=== PATIENT | male | born 1990 | race African-American/Black ===

== ENCOUNTER 2018-08-26 08:23 | Emergency (ER) | payer SELFPAY ==
[2018-08-26 09:01] LABS: Absolute Lymphocytes (CBC) 1.9 K/uL (0.7-4.9); Absolute Monocytes 0.2 K/uL (0.1-1.3); Absolute Neutrophil 1.6 K/uL (1.8-8.0); Basophils % 1.2 % (0-1.3); Eosinophils % 4.8 % (0-4.4); Hematocrit 45.3 % (39.6-49.0); Lymphocytes % 47.8 % (15.3-44.8); MCH 29.4 pg (27.0-35.0); MCV 90.1 fL (80-100); MPV 10.6 fL (7.6-11.3); Monocytes % 5.5 % (3.3-12.3); RBC Red Blood Cell Count 5.03 M/uL (4.33-5.43)
[2018-08-26 09:19] LABS: BUN Blood Urea Nitrogen 11 mg/dL (7-18); Bicarbonate 30 mmol/L (21-32); Glucose Level 94 mg/dL (74-106); Magnesium 1.9 mg/dL (1.8-2.4); NT PRO-BNP 50 pg/mL (<125); Potassium 4.2 mmol/L (3.5-5.1); Sodium Level 142 mmol/L (136-145); Troponin (Emerg Dept Use Only) < 0.02 ng/mL (0.0-0.045)
--- NOTE | 2018-08-26 09:33 | RAD REPORT ---
EXAM DESCRIPTION: RAD - Chest Pa And Lat (2 Views) - 08/26/2018 9:28 am CLINICAL HISTORY: CHEST PAIN Chest pain. COMPARISON: CHEST SINGLE VIEW dated 01/09/2013; CHEST PA AND LAT 2 VIEW dated 07/02/2011 FINDINGS: The lungs are clear. The heart is normal in size. No displaced fractures. IMPRESSION: No acute or concerning finding suspected.
--- NOTE | 2018-08-26 09:45 | ER ---
Nurse's Notes [facility] Name: Marcos Gonzalez Age: 28 yrs Sex: Male : 1990 Arrival Date: 08/26/2018 Time: 08:24 Bed 17 Private MD: None, None Diagnosis: Chest pain, unspecified Presentation: 08/26 08:37 Presenting complaint: Patient states: i have this squeezing feeling on my chest for the hj past 3 days; reports cough; the pain moves from my back to the center of my chest; reports SOB; reports nausea; denies vomiting; pain is 10/10;. Transition of care: patient was not received from another setting of care. Onset of symptoms was August 26, 2018. Risk Assessment: Do you want to hurt yourself or someone else? Patient reports no desire to harm self or others. Initial Sepsis Screen: Does the patient meet any 2 criteria? No. Patient's initial sepsis screen is negative. Does the patient have a suspected source of infection? No. Patient's initial sepsis screen is negative. Care prior to arrival: None. 08:37 Method Of Arrival: Ambulatory 08:37 Acuity: WALTER 3 hj Triage Assessment: 08:40 General: Appears in no apparent distress. uncomfortable, Behavior is calm, cooperative, hj appropriate for age. Pain: Complains of pain in chest Pain radiates to back Pain currently is 10 out of 10 on a pain scale. Quality of pain is described as squeezing. EENT: No signs and/or symptoms were reported regarding the EENT system. Neuro: Level of Consciousness is awake, alert, obeys commands, Oriented to person, place, time, situation, Appropriate for age. Cardiovascular: Capillary refill < 3 seconds Patient's skin is warm and dry. Respiratory: Airway is patent Respiratory effort is even, unlabored, Respiratory pattern is regular, symmetrical. GI: No signs and/or symptoms were reported involving the gastrointestinal system. : No signs and/or symptoms were reported regarding the genitourinary system. Derm: No signs and/or symptoms reported regarding the dermatologic system. Musculoskeletal: Circulation, motion, and sensation intact. Capillary refill Range of motion: intact in all extremities. Historical: - Allergies: 08:39 No Known Allergies; hj - Home Meds: 08:39 None [Active]; hj - PMHx: 08:39 None; hj - PSHx: 08:39 None; hj - Immunization history:: Adult Immunizations up to date. - Social history:: Smoking status: Patient uses tobacco products, smokes one-half pack cigarettes per day, Patient uses alcohol, occasionally. - Ebola Screening: : Patient negative for fever greater than or equal to 101.5 degrees Fahrenheit, and additional compatible Ebola Virus Disease symptoms Patient denies exposure to infectious person Patient denies travel to an Ebola-affected area in the 21 days before illness onset. Screenin:40 Abuse screen: Denies threats or abuse. Denies injuries from another. Nutritional hj screening: No deficits noted. Tuberculosis screening: No symptoms or risk factors identified. Fall Risk None identified. Assessment: 08:30 General: Appears in no apparent distress. uncomfortable, Behavior is calm, cooperative, hj appropriate for age. Pain: Complains of pain in back and chest. Neuro: Level of Consciousness is awake, alert, obeys commands, Oriented to person, place, time, situation, Appropriate for age. Cardiovascular: Capillary refill < 3 seconds Patient's skin is warm and dry. Respiratory: Airway is patent Respiratory effort is even, unlabored, Respiratory pattern is regular, symmetrical. GI: No signs and/or symptoms were reported involving the gastrointestinal system. : No signs and/or symptoms were reported regarding the genitourinary system. EENT: No signs and/or symptoms were reported regarding the EENT system. Derm: No signs and/or symptoms reported regarding the dermatologic system. Musculoskeletal: No signs and/or symptoms reported regarding the musculoskeletal system. 09:30 Reassessment: Patient and/or family updated on plan of care and expected duration. Pain hj level reassessed. Patient is alert, oriented x 3, equal unlabored respirations, skin warm/dry/pink. wheeled from CT;. Vital Signs: 08:41 BP 118 / 74; Pulse 69; Resp 18; Temp 98.1(O); Pulse Ox 100% on R/A; Weight 85.73 kg; hj Height 6 ft. 2 in. (187.96 cm); Pain 10/10; 09:13 BP 106 / 73 RA Sitting; Pulse 53; Resp 18; Pulse Ox 100% on R/A; hj 09:13 BP 119 / 75 LA Sitting; Pulse 65; Resp 18; Pulse Ox 100% on R/A; hj 09:53 BP 116 / 74; Pulse 60; Resp 18; Pulse Ox 100% on R/A; hj 08:41 Body Mass Index 24.27 (85.73 kg, 187.96 cm) hj ED Course: 08:24 Patient arrived in ED. mr 08:24 None, None is Private Physician. mr 08:31 Anette Burger FNP-C is [facility]. kb 08:31 Bradford Adler MD is Attending Physician. kb 08:31 EKG done, by field technical support consultant. reviewed by Bradford Adler MD. at1 08:31 No provider procedures requiring assistance completed. Initial lab(s) drawn, by me, hj sent to lab. Inserted saline lock: 22 gauge in right antecubital area, using aseptic technique. Blood collected. 08:37 Eusebio Bajwa, RN is Primary Nurse. hj 08:39 Triage completed. hj 08:41 Arm band placed on right wrist. hj 08:41 Patient has correct armband on for positive identification. Placed in gown. Bed in low hj position. Call light in reach. Side rails up X 1. Adult w/ patient. 09:21 X-ray completed. Patient tolerated procedure well. Patient moved back from radiology. jb2 09:23 Chest Pa And Lat (2 Views) XRAY In Process Unspecified. EDMS 10:04 IV discontinued, intact, bleeding controlled, No redness/swelling at site. Pressure hj dressing applied. Administered Medications: 09:38 Drug: TORadol 30 mg Route: IVP; Site: right antecubital; hj 09:53 Follow up: Response: No adverse reaction; Pain is decreased hj Outcome: 09:44 Discharge ordered by . kb 10:03 Discharged to home ambulatory, with family. hj 10:03 Condition: stable 10:03 Discharge instructions given to patient, family, Instructed on discharge instructions, follow up and referral plans. Demonstrated understanding of instructions, follow-up care. 10:03 Patient left the ED. Signatures: Dispatcher [employer] EDMS Anette Burger FNP-C FNP-Patricia Alis Solis Jesse jb2 Malena Hendrix, slitter cut off operator EKG Tat1 Eusebio Bajwa, RN RN Corrections: (The following items were deleted from the chart) 10:04 10:03 Discharge instructions given to patient, family, Instructed on discharge instructions, follow up and referral plans. Demonstrated understanding of instructions, follow-up care,
--- NOTE | 2018-08-26 09:45 | EDPHYS ---
Physician Documentation [facility] Name: Marcos Gonzalez Age: 28 yrs Sex: Male : 1990 Arrival Date: 08/26/2018 Time: 08:24 Bed 17 Private MD: None, None ED Physician Bradford Adler HPI: 08/26 09:41 This 28 yrs old Black Male presents to ER via Ambulatory with complaints of Back Pain, kb Chest Pain. 09:41 The patient or guardian reports chest pain that is located primarily in the anterior kb chest wall, bilaterally. The pain radiates to back. Associated signs and symptoms: Pertinent positives: shortness of breath. The chest pain is described as sharp. Duration: The patient or guardian reports multiple episodes. Modifying factors: The symptoms are alleviated by remaining still, the symptoms are aggravated by movement. Severity of pain: At its worst the pain was mild in the emergency department the pain is unchanged. The patient has not experienced similar symptoms in the past. The patient has not recently seen a physician. Pt reports chest and back pain that is worse with movement. States "I know it's there when I'm being still but it's not really painful until I move." Reports he is not sure if the pain starts in the back or chest. Onset 2-3 days ago. Historical: - Allergies: 08:39 No Known Allergies; hj - Home Meds: 08:39 None [Active]; hj - PMHx: 08:39 None; hj - PSHx: 08:39 None; hj - Immunization history:: Adult Immunizations up to date. - Social history:: Smoking status: Patient uses tobacco products, smokes one-half pack cigarettes per day, Patient uses alcohol, occasionally. - Ebola Screening: : Patient negative for fever greater than or equal to 101.5 degrees Fahrenheit, and additional compatible Ebola Virus Disease symptoms Patient denies exposure to infectious person Patient denies travel to an Ebola-affected area in the 21 days before illness onset. ROS: 09:40 Constitutional: Negative for fever, chills, and weight loss, Respiratory: Negative for kb shortness of breath, cough, wheezing, and pleuritic chest pain, Abdomen/GI: Negative for abdominal pain, nausea, vomiting, diarrhea, and constipation, : Negative for injury, bleeding, discharge, and swelling, MS/Extremity: Negative for injury and deformity, Skin: Negative for injury, rash, and discoloration, Neuro: Negative for headache, weakness, numbness, tingling, and seizure. 09:40 Cardiovascular: Positive for chest pain. 09:40 Back: Positive for pain with movement. Exam: 09:40 Constitutional: This is a well developed, well nourished patient who is awake, alert, kb and in no acute distress. Head/Face: Normocephalic, atraumatic. Chest/axilla: Normal chest wall appearance and motion. Nontender with no deformity. No lesions are appreciated. Cardiovascular: Regular rate and rhythm with a normal S1 and S2. No gallops, murmurs, or rubs. Normal PMI, no JVD. No pulse deficits. Respiratory: Lungs have equal breath sounds bilaterally, clear to auscultation and percussion. No rales, rhonchi or wheezes noted. No increased work of breathing, no retractions or nasal flaring. Abdomen/GI: Soft, non-tender, with normal bowel sounds. No distension or tympany. No guarding or rebound. No evidence of tenderness throughout. Back: No spinal tenderness. No costovertebral tenderness. Full range of motion. Skin: Warm, dry with normal turgor. Normal color with no rashes, no lesions, and no evidence of cellulitis. MS/ Extremity: Pulses equal, no cyanosis. Neurovascular intact. Full, normal range of motion. Neuro: Awake and alert, GCS 15, oriented to person, place, time, and situation. Cranial nerves II-XII grossly intact. Motor strength 5/5 in all extremities. Sensory grossly intact. Cerebellar exam normal. Normal gait. Vital Signs: 08:41 BP 118 / 74; Pulse 69; Resp 18; Temp 98.1(O); Pulse Ox 100% on R/A; Weight 85.73 kg; hj Height 6 ft. 2 in. (187.96 cm); Pain 10/10; 09:13 BP 106 / 73 RA Sitting; Pulse 53; Resp 18; Pulse Ox 100% on R/A; hj 09:13 BP 119 / 75 LA Sitting; Pulse 65; Resp 18; Pulse Ox 100% on R/A; hj 09:53 BP 116 / 74; Pulse 60; Resp 18; Pulse Ox 100% on R/A; hj 08:41 Body Mass Index 24.27 (85.73 kg, 187.96 cm) hj MDM: 08:36 Patient medically screened. kb 09:41 Data reviewed: vital signs, nurses notes. Data interpreted: Pulse oximetry: on room air kb is 100 %. Interpretation: normal. Counseling: I had a detailed discussion with the patient and/or guardian regarding: the historical points, exam findings, and any diagnostic results supporting the discharge/admit diagnosis, lab results, radiology results, the need for outpatient follow up, a family practitioner, to return to the emergency department if symptoms worsen or persist or if there are any questions or concerns that arise at home. 08/26 08:44 Order name: Basic Metabolic Panel; Complete Time: 09:20 kb 08/26 08:44 Order name: CBC with Diff; Complete Time: 09:08 kb 08/26 08:44 Order name: Magnesium; Complete Time: 09:20 kb 08/26 08:44 Order name: NT PRO-BNP; Complete Time: 09:20 kb 08/26 08:44 Order name: Troponin (emerg Dept Use Only); Complete Time: 09:20 kb 08/26 08:45 Order name: D-Dimer; Complete Time: 09:12 kb 08/26 08:36 Order name: EKG; Complete Time: 08:36 kb 08/26 08:36 Order name: EKG - Nurse/Tech; Complete Time: 08:37 kb 08/26 08:44 Order name: Cardiac monitoring; Complete Time: 09:08 kb 08/26 08:44 Order name: IV Saline Lock; Complete Time: 09:08 kb 08/26 08:44 Order name: Labs collected and sent; Complete Time: 09:08 kb 08/26 08:44 Order name: O2 Per Protocol; Complete Time: 08:46 kb 08/26 08:44 Order name: Chest Pa And Lat (2 Views) XRAY; Complete Time: 09:34 kb 08/26 08:44 Order name: O2 Sat Monitoring; Complete Time: 08:46 kb 08/26 08:44 Order name: Bilateral blood pressure; Complete Time: 09:14 kb Administered Medications: 09:38 Drug: TORadol 30 mg Route: IVP; Site: right antecubital; hj 09:53 Follow up: Response: No adverse reaction; Pain is decreased hj Disposition: 14:34 Co-signature as Attending Physician, Bradford Adler MD. rn Disposition: 08/26/18 09:44 Discharged to Home. Impression: Chest pain, unspecified. - Condition is Stable. - Discharge Instructions: Nonspecific Chest Pain, [id number]. - Medication Reconciliation Form, Thank You Letter, Antibiotic Education, Prescription Opioid Use, Work release form, Family Work Release form. - Follow up: Emergency Department; When: As needed; Reason: Worsening of condition. Follow up: Private Physician; When: 2 - 3 days; Reason: Recheck today's complaints, Continuance of care, Re-evaluation by your physician. Signatures: Dispatcher [employer] EDMS Anette Burger, TARGET NETWORK ANALYST-C TARGET NETWORK ANALYST-Ckb Bradford Adler MD MD rn Joaquin, Henry, RN RN hj Corrections: (The following items were deleted from the chart) 09:44 09:41 Pt reports chest and back pain that is worse with movement. States "I know it's kb there when I'm being still but it's not really painful until I move." Reports he is not sure if the pain starts in the back or chest.. kb 10:03 09:44 08/26/2018 09:44 Discharged to Home. Impression: Chest pain, unspecified. hj Condition is Stable. Forms are Medication Reconciliation Form, Thank You Letter, Antibiotic Education, Prescription Opioid Use. Follow up: Emergency Department; When: As needed; Reason: Worsening of condition. Follow up: Private Physician; When: 2 - 3 days; Reason: Recheck today's complaints, Continuance of care, Re-evaluation by your physician. kb
[2018-08-26] MEDS ORDERED: KETOROLAC 30 MG/ML INJ ONE (09:58)
[2018-08-26 10:23] VITALS: TEMP 98.1; O2SAT 100
[2018-08-26 10:25] VITALS: BP 116/74
--- NOTE | 2018-08-26 10:33 | EKG ---
Test Date: 2018-08-26 Test Time: 08:27:41 Correctional Lieutenant: MADELAINE MEASUREMENT RESULTS: Intervals: Rate: 64 TX: 148 QRSD: 88 QT: 378 QTc: 389 [place]: P: 77 TX: 148 QRS: 14 T: 62 INTERPRETIVE STATEMENTS: Normal sinus rhythm Normal ECG Compared to ECG 03/23/2007 08:06:03 Sinus bradycardia no longer present Electronically Signed On 08-26-18 10:32:27 CDT by Oscar Olea
== END 2018-08-26 10:03 | disposition home or self-care (01) ==
LOC: ER 08:23
DX: R07.9 Chest pain, unspecified (principal); F17.210 Nicotine dependence, cigarettes, uncomplicated
CPT/HCPCS: 36415; 71046; 80048; 83735; 83880; 84484; 85025; 85379; 93005; 96374; 99284

== ENCOUNTER 2019-07-28 06:33 | Emergency (ER) | payer SELFPAY ==
--- NOTE | 2019-07-28 07:34 | ER ---
Nurse's Notes [facility] Name: Marcos Gonzalez Age: 29 yrs Sex: Male : 1990 Arrival Date: 07/28/2019 Time: 06:34 Bed 18 [facility] MD: Diagnosis: Urethritis Presentation: 07/28 06:49 Presenting complaint: Patient states: "I have been having a lot of itching down there. jd3 I don't think it is an STD, but I am no gaining weight and eating badly. It is itching and kind of like a burning feeling and really dry looking. I have only been with my girl so I don't know how I would have gotten anything.". Transition of care: patient was not received from another setting of care. Onset of symptoms was July 28, 2019. Risk Assessment: Do you want to hurt yourself or someone else? Patient reports no desire to harm self or others. Initial Sepsis Screen: Does the patient meet any 2 criteria? No. Patient's initial sepsis screen is negative. Does the patient have a suspected source of infection? No. Patient's initial sepsis screen is negative. Care prior to arrival: None. 06:49 Method Of Arrival: Ambulatory jd3 06:49 Acuity: WALTER 4 jd3 Historical: - Allergies: 06:52 No Known Allergies; jd3 - Home Meds: 06:52 None [Active]; jd3 - PMHx: 06:52 None; jd3 - PSHx: 06:52 None; jd3 - Immunization history:: Adult Immunizations up to date. - Social history:: Smoking status: Patient uses tobacco products, denies chronic smoking, but will smoke occasionally. - Ebola Screening: : Patient negative for fever greater than or equal to 101.5 degrees Fahrenheit, and additional compatible Ebola Virus Disease symptoms. Screenin:55 Abuse screen: Denies threats or abuse. Nutritional screening: No deficits noted. jd3 Tuberculosis screening: No symptoms or risk factors identified. Fall Risk Ambulatory Aid- None/Bed Rest/Nurse Assist (0 pts). Gait- Normal/Bed Rest/Wheelchair (0 pts) Mental Status- Oriented to own ability (0 pts). Total Casanova Fall Scale indicates No Risk (0-24 pts). Assessment: 06:53 General: Appears in no apparent distress. uncomfortable, Behavior is calm, cooperative, jd3 appropriate for age. Pain: Complains of pain in groin Quality of pain is described as burning. Neuro: Level of Consciousness is awake, alert, obeys commands, Oriented to person, place, time, situation. Cardiovascular: Capillary refill < 3 seconds Patient's skin is warm and dry. Respiratory: Airway is patent Respiratory effort is even, unlabored, Respiratory pattern is regular, symmetrical. GI: No signs and/or symptoms were reported involving the gastrointestinal system. : Reports burning, itching, and dry-look to groin and penis Denies burning with urination, inability to void. EENT: No signs and/or symptoms were reported regarding the EENT system. Derm: Skin is intact, Skin is dry, Skin is normal, Skin temperature is warm. Musculoskeletal: Circulation, motion, and sensation intact. Range of motion: intact in all extremities. 07:30 Reassessment: Patient appears in no apparent distress at this time. No changes from hb previously documented assessment. Patient and/or family updated on plan of care and expected duration. Pain level reassessed. Patient is alert, oriented x 3, equal unlabored respirations, skin warm/dry/pink. Vital Signs: 06:52 BP 121 / 70; Pulse 77; Resp 16 S; Temp 98.0(O); Pulse Ox 97% on R/A; Weight 92.53 kg jd3 (R); Height 6 ft. 2 in. (187.96 cm) (R); Pain 5/10; 07:45 BP 120 / 72; Pulse 71; Resp 16; Pulse Ox 99% on R/A; hb 06:52 Body Mass Index 26.19 (92.53 kg, 187.96 cm) j ED Course: 06:34 Patient arrived in ED. ds1 06:51 Triage completed. jd3 06:53 Benson Iqbal NP is PHCP. pm1 06:53 Will Will MD is Attending Physician. pm1 06:53 Arm band placed on. jd3 06:55 Patient has correct armband on for positive identification. Bed in low position. Call [facility] light in reach. Side rails up X 1. 07:38 Daina Akers, WILY is Primary Nurse. hb 07:49 Urine Microscopic Only Sent. hb 07:55 Urine collected: clean catch specimen, clear. [facility] 08:04 No provider procedures requiring assistance completed. Patient did not have IV access hb during this emergency room visit. Administered Medications: 07:41 Drug: Rocephin (cefTRIAXone) 250 mg Route: IM; Site: right deltoid; hb 08:01 Follow up: Response: No adverse reaction hb 07:41 Drug: AZITHromycin 1 grams Route: PO; hb 08:02 Follow up: Response: Medication administered at discharge. Outcome: 07:33 Discharge ordered by MD. pm1 08:04 Discharged to home ambulatory. hb 08:04 Condition: stable 08:04 Discharge instructions given to patient, Instructed on discharge instructions, follow up and referral plans. medication usage, Demonstrated understanding of instructions, follow-up care, medications. 08:06 Patient left the ED. Signatures: Jenifer Lynn ds1 Benson Iqbal, MOLLY POWER TECHNICIAN pm1 Daina Akers RN RN Aide [place] 5 Humberto Domínguez RN RN jd3
--- NOTE | 2019-07-28 07:35 | EDPHYS ---
Physician Documentation [facility] Name: Marcos Gonzalez Age: 29 yrs Sex: Male : 1990 Arrival Date: 07/28/2019 Time: 06:34 Bed 18 Private MD: ED Physician Will Will HPI: 07/28 07:30 This 29 yrs old Black Male presents to ER via Ambulatory with complaints of Penile pm1 Problem - Itching/Burning. 07:30 The patient presents with urinary symptoms, dysuria, whitish skin on shaft of penis. pm1 Onset: The symptoms/episode began/occurred many months on and off. Patient had STD test with girlfriend 2 years ago after they had sex. he was negative and she was positive for a STD. Patent reports symptoms are present when he does not wash his genitals after intercourse. Modifying factors: The symptoms are alleviated by nothing, the symptoms are aggravated by poor hygiene after sex. Associated signs and symptoms: Pertinent negatives: abdominal pain, fever, testicular pain or swelling. Severity of symptoms: in the emergency department the symptoms are unchanged. The patient has not recently seen a physician. Historical: - Allergies: 06:52 No Known Allergies; jd3 - Home Meds: 06:52 None [Active]; jd3 - PMHx: 06:52 None; jd3 - PSHx: 06:52 None; jd3 - Immunization history:: Adult Immunizations up to date. - Social history:: Smoking status: Patient uses tobacco products, denies chronic smoking, but will smoke occasionally. - Ebola Screening: : Patient negative for fever greater than or equal to 101.5 degrees Fahrenheit, and additional compatible Ebola Virus Disease symptoms. ROS: 07:30 Constitutional: Negative for fever, chills, and weight loss, Eyes: Negative for injury, pm1 pain, redness, and discharge, ENT: Negative for injury, pain, and discharge, Neck: Negative for injury, pain, and swelling, Cardiovascular: Negative for chest pain, palpitations, and edema, Respiratory: Negative for shortness of breath, cough, wheezing, and pleuritic chest pain, Abdomen/GI: Negative for abdominal pain, nausea, vomiting, diarrhea, and constipation, Back: Negative for injury and pain. 07:30 MS/Extremity: Negative for injury and deformity, Skin: Negative for injury, rash, and discoloration, Neuro: Negative for headache, weakness, numbness, tingling, and seizure. 07:30 : Positive for burning with urination, Negative for penile discharge, penile pain, testicular pain Exam: 07:30 Constitutional: This is a well developed, well nourished patient who is awake, alert, pm1 and in no acute distress. Head/Face: Normocephalic, atraumatic. Eyes: Pupils equal round and reactive to light, extra-ocular motions intact. Lids and lashes normal. Conjunctiva and sclera are non-icteric and not injected. Cornea within normal limits. Periorbital areas with no swelling, redness, or edema. ENT: Nares patent. No nasal discharge, no septal abnormalities noted. Tympanic membranes are normal and external auditory canals are clear. Oropharynx with no redness, swelling, or masses, exudates, or evidence of obstruction, uvula midline. Mucous membranes moist. Neck: Trachea midline, no thyromegaly or masses palpated, and no cervical lymphadenopathy. Supple, full range of motion without nuchal rigidity, or vertebral point tenderness. No Meningismus. Chest/axilla: Normal chest wall appearance and motion. Nontender with no deformity. No lesions are appreciated. Cardiovascular: Regular rate and rhythm with a normal S1 and S2. No gallops, murmurs, or rubs. Normal PMI, no JVD. No pulse deficits. Respiratory: Lungs have equal breath sounds bilaterally, clear to auscultation and percussion. No rales, rhonchi or wheezes noted. No increased work of breathing, no retractions or nasal flaring. Abdomen/GI: Soft, non-tender, with normal bowel sounds. No distension or tympany. No guarding or rebound. No evidence of tenderness throughout. Back: No spinal tenderness. No costovertebral tenderness. Full range of motion. Male : Normal genitalia with no discharge or lesions. Skin: Warm, dry with normal turgor. Normal color with no rashes, no lesions, and no evidence of cellulitis. MS/ Extremity: Pulses equal, no cyanosis. Neurovascular intact. Full, normal range of motion. 07:30 Neuro: Orientation: is normal, Motor: is normal, moves all fours. Vital Signs: 06:52 BP 121 / 70; Pulse 77; Resp 16 S; Temp 98.0(O); Pulse Ox 97% on R/A; Weight 92.53 kg jd3 (R); Height 6 ft. 2 in. (187.96 cm) (R); Pain 5/10; 07:45 BP 120 / 72; Pulse 71; Resp 16; Pulse Ox 99% on R/A; hb 06:52 Body Mass Index 26.19 (92.53 kg, 187.96 cm) jd3 MDM: 07:12 Patient medically screened. pm1 07:30 Data reviewed: vital signs. Data interpreted: Pulse oximetry: on room air is 97 %. pm1 Interpretation: normal. Counseling: I had a detailed discussion with the patient and/or guardian regarding: the historical points, exam findings, and any diagnostic results supporting the discharge/admit diagnosis, the need for outpatient follow up, to return to the emergency department if symptoms worsen or persist or if there are any questions or concerns that arise at home. 07/28 07:30 Order name: Urine Microscopic Only; Complete Time: 08:31 pm1 07/28 07:55 Order name: Urine Dipstick--Ancillary (enter results) bd 07/28 07:29 Order name: Urine Dipstick-Ancillary (obtain specimen); Complete Time: 07:49 pm1 Administered Medications: 07:41 Drug: Rocephin (cefTRIAXone) 250 mg Route: IM; Site: right deltoid; hb 08:01 Follow up: Response: No adverse reaction hb 07:41 Drug: AZITHromycin 1 grams Route: PO; hb 08:02 Follow up: Response: Medication administered at discharge. hb Disposition: 20:18 Co-signature as Attending Physician, Will Will MD. Disposition: 07/28/19 07:33 Discharged to Home. Impression: Urethritis. - Condition is Stable. - Discharge Instructions: Urethritis, Adult. - Work release form, Medication Reconciliation Form, Thank You Letter, Antibiotic Education, Prescription Opioid Use form. - Follow up: Emergency Department; When: As needed; Reason: Worsening of condition. Follow up: Private Physician; When: 2 - 3 days; Reason: Recheck today's complaints, Continuance of care, Re-evaluation by your physician. - Problem is new. - Symptoms have improved. Signatures: Dispatcher [employer] EDAL Benson Iqbal, ELECTRICAL INSTALLATION SUPERVISOR ELECTRICAL INSTALLATION SUPERVISOR pm1 Daina Akers RN RN Will Will MD MD gs Davies, Jonathon RN RN jd3 Corrections: (The following items were deleted from the chart) 08:06 07:33 07/28/2019 07:33 Discharged to Home. Impression: Urethritis. Condition is Stable. hb Forms are Medication Reconciliation Form, Thank You Letter, Antibiotic Education, Prescription Opioid Use. Follow up: Emergency Department; When: As needed; Reason: Worsening of condition. Follow up: Private Physician; When: 2 - 3 days; Reason: Recheck today's complaints, Continuance of care, Re-evaluation by your physician. Problem is new. Symptoms have improved. pm1
[2019-07-28] MEDS ORDERED: CEFTRIAXONE 250 MG/VIAL ONE (07:41)
[2019-07-28] MEDS ORDERED: AZITHROMYCIN 250 MG TAB ONE (07:41)
[2019-07-28] MEDS ORDERED: LIDOCAINE 1% MPF 2 ML AMPULE ONE (07:42)
[2019-07-28 08:13] VITALS: TEMP 98
[2019-07-28 08:14] VITALS: BP 120/72; O2SAT 99
[2019-07-28 08:18] LABS: Urine Bacteria NONE SEEN /HPF (NONE SEEN); Urine Culture Reflex Order NOT NEEDED; Urine RBC <5 /HPF (NONE SEEN)
[2019-07-28 14:51] LABS: Urine Blood NEGATIVE (NEG); Urine Glucose NEGATIVE (NEG); Urine Protein NEGATIVE (NEG)
== END 2019-07-28 08:06 | disposition home or self-care (01) ==
LOC: ER 06:33
DX: N34.2 Other urethritis (principal); Z72.0 Tobacco use
CPT/HCPCS: 81003; 81015; 96372; 99283; J0696; J2001

== ENCOUNTER 2025-08-30 00:18 | Emergency (ER) | payer OTHER, SELFPAY ==
--- OUTSIDE RECORDS SUMMARY | 2025-08-30 00:20 | XMS REPORT | Continuity of Care Document ---
Author Name Unknown Address [address] [place] [address] [facility] Address [address] [place] [address] Care Team Providers Care Underliner Name Role Phone [place], [place] [facility] Primary [facility] Physician Md Robert Roque Attending Clinician [phone] Scott Espinosa DO Attending Clinician [phone] Gastroenterology, [facility] Attending Clinician Benson Caal Attending Clinician [phone] Scott Espinosa DO Admitting Clinician [phone] Payers Payer Name Policy Type Policy Number Effective Date Expirati on Date Source Social History Social Habit Start Date Stop Date Quantity Comments Source History of tobacco use Cigarette Smoker [facility] Cigarettes smoked current (pack per day) - Reported 2024-05-28 00:00:00 2024-05-28 00:00:00 [facility] Cigarette pack-years 2024-05-28 00:00:00 2024-05-28 00:00:00 [facility] Tobacco use and exposure 2024-05-28 00:00:00 2024-05-28 00:00:00 Smokeless tobacco non-user [facility] History of Social function 2024-05-28 00:00:00 2024-05-28 00:00:00 [facility] Sex assigned at 1990 00:00:00 1990 00:00:00 [facility] Smoking Status Start Date Stop Date Source Tobacco smoking consumption unknown [facility] Ex-smoker 2024-05-28 00:00:00 2024-05-28 00:00:00 [facility] Medications Ordered Medication Name Filled Medication Name Start Date Stop Date Current Medication? Ordering Clinician Indication Dosage Frequency Signature (SIG) Comments Components Source amoxicillin (TRIMOX) 500 mg capsule 07-24 00:00: 00 05-08 00:00 :00 No [id number] 500mg Take 1 Cap by mouth 3 (three) times daily. [facility] ibuprofen (MOTRIN) 600 mg tablet 07-24 00:00: 00 05-08 00:00 :00 No [id number] 600mg Take 1 Tab by mouth every 6 (six) hours as needed for Pain. [facility] hydrocodone -acetaminop hen (NORCO) 5-325 mg tablet 07-24 00:00: 00 05-08 00:00 :00 No [id number] 1{tbl} Take 1-2 Tabs by mouth every 6 (six) hours as needed for Pain. [facility] chlorhexidi ne (PERIDEX) 0.12 % Liqd 07-24 00:00: 00 05-08 00:00 :00 No [id number] 15mL Swish and spit out 15 mL 2 (two) times daily. [facility] Vital Signs Vital Name Observation Time Observation Value Comments S refugio Systolic blood pressure 2024-05-28 15:33:00 146 mm[Hg] [facility] Diastolic blood pressure 2024-05-28 15:33:00 79 mm[Hg] [facility] Heart rate 2024-05-28 15:33:00 50 /min [facility] Respiratory rate 2024-05-28 15:33:00 18 /min [facility] Body height 2024-05-28 15:33:00 188 cm [facility] Body weight 2024-05-28 15:33:00 106.595 kg [facility] BMI 2024-05-28 15:33:00 30.17 kg/m2 [facility] Oxygen saturation in Arterial blood by Pulse oximetry 2024-05-28 15:33:00 100 /min [facility] Procedures Procedure Date / Time Performed Performing Clinicia n Source XR ABDOMEN 1 VW 2024-06-02 15:40:01 Md Robert Roque [facility] XR CHEST 2 2023-10-16 16:24:17 Benson Celaya [facility] Encounters Start Date/Time End Date/Time Encounter Type Admission Type Attending [facility] Care Facility Care Department Encounter ID Source 2024-06-02 10:17:03 2024-06-02 23:59:00 Hospital Encounter Md Robert Roque [facility] [id number] [facility] 2024-05-28 08:00:00 2024-05-28 23:25:00 Hospital Encounter Scott Espinosa [facility] [id number] [facility] 2024-05-28 08:00:00 2024-05-28 11:31:26 Office Visit [facility] Scott Espinosa [facility] [id number] [facility] 2024-05-07 08:00:00 2024-05-08 00:13:00 Hospital Encounter Scott Espinosa [facility] [id number] [facility] 2023-10-16 09:05:50 2023-10-16 23:59:00 Hospital Encounter Benson Celaya [facility] [id number] [facility] Results Test Description Test Time Test Comments Results Resul t Comments Source XR ABDOMEN 1 VW 2024-06-03 01:56:04 EXAM: XR ABDOMEN 1 VW HISTORY: 34 years-old Male; Provided indication: abd pain . TECHNIQUE: Frontal view of the abdomen and pelvis COMPARISON: None [facility]
[2025-08-30] MEDS ORDERED: ONDANSETRON 4 MG/2 ML VIAL ONE (00:25)
[2025-08-30] MEDS ORDERED: FENTANYL CITR 100 MCG/2 ML ONE (00:26)
[2025-08-30] MEDS ORDERED: CEFAZOLIN SODIUM 2 GM/VIAL ONE (00:51)
[2025-08-30] MEDS ORDERED: KETOROLAC 30 MG/ML INJ ONE (00:51)
[2025-08-30] MEDS ORDERED: NA CHLORIDE 0.9% 1,000 ML ONE (00:51)
[2025-08-30] MEDS ORDERED: LORazepam 2 MG/ML VIAL ONE (00:51)
[2025-08-30] MEDS ORDERED: NA CHLORIDE 0.9% 100 ML ONE (00:51)
[2025-08-30 00:58] LABS: Absolute Lymphocytes (CBC) 1.7 K/uL (0.7-4.9); Hematocrit 44.6 % (39.6-49.0); Hemoglobin 14.3 g/dL (13.6-17.9); MCH 29.5 pg (27.0-35.0); MCHC 32.0 g/dL (32.0-36.0); MCV 92.1 fL (80-100); MPV 10.2 fL (7.6-11.3); Nucleated RBC Absolute Count 0.0 (0-0); Nucleated Red Blood Cells % 0.0 % (0-0); RBC Red Blood Cell Count 4.84 M/uL (4.33-5.43); White Blood Count 5.30 thou/uL (4.3-10.9)
[2025-08-30 01:14] LABS: ALT/SGPT 41.0 U/L (16-61); AST/SGOT 32.0 U/L (15-37); Albumin 3.5 g/dL (3.4-5.0); Albumin/Globulin Ratio 0.9 (1.1-1.8); Alkaline Phosphatase 82.0 U/L (45-117); Anion Gap 9.1 mEq/L (5.0-15.0); BUN Blood Urea Nitrogen 9.0 mg/dL (7-18); Globulin 4.1 g/dL (2.3-3.5); Glucose Level 147.0 mg/dL (74-106); Lipase 33.0 U/L (13-75); Potassium 3.1 mEq/L (3.5-5.1)
[2025-08-30] MEDS ORDERED: LIDOCAINE 1% MPF 30 ML VIAL ONE (01:22)
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
[2025-08-30 09:44] VITALS: TEMP 98.1
[2025-08-30 09:49] VITALS: BP 122/77; O2SAT 99
== END 2025-08-30 02:49 | disposition home or self-care (01) ==
LOC: ER 00:18
PROC: 0HQ5XZZ Repair Chest Skin, External Approach (ICD-10-PCS; principal; 2025-08-30)
DX: S21.111A Laceration without foreign body of right front wall of thorax without penetration into thoracic cavity, initial encounter (principal); X99.1XXA Assault by knife, initial encounter
CPT/HCPCS: 85025; 36415; 86900; 86850; 86901; 83690; 80053; 71260; 74177; 71045; 82077; 12032; Q9967; J1885; J2003; J3010; J2405; J7030; 12002; 96365; 96366; 96375; 99285; J1790